=== PATIENT | male | born 1985 | race Caucasian/White ===

== ENCOUNTER 2017-01-06 19:45 | Emergency (ER) | payer OTHER ==
[2017-01-06 20:14] VITALS: BP 127/74; PULSE 58; TEMP 97.9; BMI 26.6
--- NOTE | 2017-01-06 20:15 | PDOC ---
History of Present Illness - History of Present Illness Initial Comments: 01/06/17 21:05 The patient is a 31 year old male with no significant past medical hx who presents to the ED complaining of back pain since this evening. The [place] and fell onto his back. He fell onto flat ground. He notes he has been having constant pain to his upper back since. He denies any loss of consciousness. His pain is exacerbated with movement. He took Advil with minimal relief of pain. He denies any radiation of pain, numbness, or tingling He denies headaches, blurry vision, nausea, vomiting <Farida Ng - Last Filed: 01/06/17 21:24> <Philomena Florez - Last Filed: 01/07/17 02:19> - General Chief Complaint: Back Pain Stated Complaint: UPPER BACK PAIN, S/P SLIP AND FALL Time Seen by Provider: 01/06/17 20:03 Past History <Farida Ng - Last Filed: 01/06/17 21:24> - Past Medical History Other medical history: MIGRAINE - Psycho/Social/Smoking Cessation Hx Anxiety: No Suicidal Ideation: No Smoking History: Never smoked Hx Alcohol Use: Yes (3 TIMES A WEEK) Drug/Substance Use Hx: No Substance Use Type: None <Philomena Florez - Last Filed: 01/07/17 02:19> - Past Medical History Allergies/Adverse Reactions: Allergies Allergy/AdvReac Type Severity Reaction Status Date / Time No Known Allergies Allergy Verified 01/06/17 20:02 Home Medications: Ambulatory Orders Ibuprofen [Advil -] 400 mg PO ONCE 01/06/17 Review of Systems - Review of Systems Able to Perform ROS?: Yes Comments:: 01/06/17 21:05 CONSTITUTIONAL: Absent: fever, no chills, no fatigue EYES: Absent: visual changes ENT: Absent: ear pain, no sore throat CARDIOVASCULAR: Absent: chest pain, no palpitations RESPIRATORY: Absent: cough, no SOB GI: Absent: abdominal pain, no nausea, no vomiting, no constipation, no diarrhea GENITOURINARY: Absent: dysuria, no frequency, no hematuria MUSCULOSKELETAL: +Back pain. SKIN: Absent: rash NEURO: Absent: headache, numbness, tingling <Farida Ng - Last Filed: 01/06/17 21:24> *Physical Exam - Vital Signs Last Vital Signs Temp Pulse Resp BP Pulse Ox 97.9 F 58 L 15 127/74 99 01/06/17 20:01 01/06/17 20:01 01/06/17 20:01 01/06/17 20:01 01/06/17 20:01 - Physical Exam Comments: 01/06/17 21:23 GENERAL: The patient is awake, alert, and fully oriented, in no acute distress. HEAD: Normal with no signs of trauma. EYES: Pupils equal, round and reactive to light, extraocular movements intact, sclera anicteric, conjunctiva clear with no pallor. ENT: Ears normal, nares patent, oropharynx clear without exudates. Moist mucous membranes. NECK: Normal range of motion, supple without lymphadenopathy, JVD, or masses. LUNGS: Breath sounds equal, clear to auscultation bilaterally. No wheeze/ crackles. HEART: Regular rate and rhythm, normal S1 and S2 without murmur or rub. ABDOMEN: Soft/nontender/nondistended. BS wnl. No guarding or rebound. No palpable masses. No hepatosplenomegaly. EXTREMITIES: Normal range of motion, no edema. No clubbing or cyanosis. No cords, erythema, or tenderness. MUSCULOSKELETAL: +Mild mid thoracic tenderness, no stepoffs, no point tenderness , no significant muscle tenderness, no chest wall tenderness. NEUROLOGICAL: Cranial nerves II through XII grossly intact. Normal speech, normal gait. PSYCH: Normal mood, normal affect. SKIN: Warm, Dry, normal turgor, no rashes or lesions noted. <Farida Ng - Last Filed: 01/06/17 21:24> - Vital Signs Last Vital Signs Temp Pulse Resp BP Pulse Ox 97.9 F 58 L 15 127/74 99 01/06/17 20:01 01/06/17 20:01 01/06/17 20:01 01/06/17 20:01 01/06/17 20:01 <Philomena Florez - Last Filed: 01/07/17 02:19> Progress Note - Progress Note Progress Note: Documentation has been prepared under my direction and personally reviewed by me in its entirety. I attest that this documented accurately reflects all work, treatment, procedures and medical decision making performed by me. <Philomena Florez - Last Filed: 01/07/17 02:19> Medical Decision Making - Medical Decision Making As noted above, this otherwise healthy 31-year-old man presents with a [place] of [place], injuring his upper back. He had no head or neck injury; he denies loss of consciousness. He relates that his upper back has become more sore as the day has gone on. He has had no shortness of breath/ anterior chest pain/abdominal pain. He denies extremity weakness/paresthesias/ numbness or pain. Exam as noted. Clinical presentation most consistent with mild sprain/strain of upper back. Patient is advised that he may become more sore tomorrow; Toradol IM was offered to patient but he declined. Patient will take [id number] ibuprofen/naproxen/acetaminophen as needed for pain. Should avoid strenuous upper body exercises for the next few days. Patient will be given referral information for , spinal orthopedic surgeon if he has any persistent pain. <Philomena Florez - Last Filed: 01/07/17 02:19> *DC/Admit/Observation/Transfer - Attestations Scribe Attestion: 01/06/17 21:24 Documentation prepared by Farida Ng, acting as medical records coder for Philomena Florez MD/. <Farida Ng - Last Filed: 01/06/17 21:24> <Philomena Florez - Last Filed: 01/07/17 02:19> Diagnosis at time of Disposition: Upper back strain Qualifiers: Encounter type: initial encounter Qualified Code(s): S29.012A - Strain of muscle and tendon of back wall of thorax, initial encounter - Discharge Dispostion Disposition: HOME Condition at time of disposition: Stable - Referrals Referrals: Alejo Roberts MD [Staff Physician] - 1 week - Patient Instructions Printed Discharge Instructions: DI for Back Strain or Sprain Additional Instructions: ice to area for 1 week, then warmth as needed avoid strenuous upper body exercise for next 5 days Motrin/Aleve/Tylenol as needed return to ER if pain is severr followup with Dr Roberts if pain is persistent
== END 2017-01-06 21:08 | disposition home or self-care (01) ==
LOC: FER 19:45
DX: S29.012A Strain of muscle and tendon of back wall of thorax, initial encounter (principal); W18.39XA Other fall on same level, initial encounter; Y93.01 Activity, walking, marching and hiking; Y92.522 Railway station as the place of occurrence of the external cause
CPT/HCPCS: 99282-25

== ENCOUNTER 2021-03-11 00:14 | Emergency (ER) | payer OTHER ==
[2021-03-11 00:20] VITALS: BP 139/105; PULSE 80; TEMP 97.7; BMI 26.6
== END 2021-03-11 02:08 | disposition home or self-care (01) ==
LOC: FER 00:14
DX: M79.662 Pain in left lower leg (principal)
CPT/HCPCS: 93971-TC; 99284-25